=== PATIENT | female | born 1950 | race Caucasian/White ===

== ENCOUNTER 2018-10-13 07:27 | Day surgery (SDC) | payer OTHER ==
[~2018-10-13] VITALS: Ht 152.4 cm; Wt 60.0 kg
[~2018-10-13 07:27] MED LIST: ASCO500; Ambien10 MG; B Complex1 EAC2; BIOTIN; CALCA500CH; CHOL10002; GLUCOSA-CHOND-1 EACH; HYDR1TAB94; MAGOXI400; MULTI VITAMIN1 EACH; OMEG1CAP30; PROBIOTIC1 EAC1; Prinivil10 MG; TOCO400; TUMERIC; UBID10; VAGIFEM10 MCG
[2018-10-13] MEDS ORDERED: TRAZ50 PO (08:18)
== END 2018-10-13 09:20 | disposition home or self-care (01) ==
LOC: ORSCSDS 07:27
PROVIDERS: Surgery
PROC: 0DJD8ZZ Inspection of Lower Intestinal Tract, Via Natural or Artificial Opening Endoscopic (ICD-10-PCS; principal; 2018-10-13 08:30)
DX: Z12.11 Encounter for screening for malignant neoplasm of colon (principal); Z80.0 Family history of malignant neoplasm of digestive organs; I10 Essential (primary) hypertension; Z87.891 Personal history of nicotine dependence; Z79.899 Other long term (current) drug therapy
CPT/HCPCS: J7120

== ENCOUNTER 2025-04-22 07:09 | Day surgery (SDC) | payer OTHER ==
[~2025-04-22] VITALS: Ht 152.4 cm; Wt 67.1 kg
[~2025-04-22 07:09] MED LIST changes: +TRAZ50 PO
[2025-04-22] MEDS ORDERED: IBANDRONATE SO150 MG (07:51)
[2025-04-22 09:44] VITALS: BP 150/76
== END 2025-04-22 09:35 | disposition home or self-care (01) ==
LOC: ORSCSDS 07:09
PROVIDERS: Surgery
PROC: 0DJD8ZZ Inspection of Lower Intestinal Tract, Via Natural or Artificial Opening Endoscopic (ICD-10-PCS; principal; 2025-04-22 08:30)
DX: Z12.11 Encounter for screening for malignant neoplasm of colon (principal); Z86.0100 Personal history of colon polyps, unspecified; Z80.0 Family history of malignant neoplasm of digestive organs; I10 Essential (primary) hypertension; K21.9 Gastro-esophageal reflux disease without esophagitis; E78.5 Hyperlipidemia, unspecified; Z79.899 Other long term (current) drug therapy
CPT/HCPCS: J2704; J7120